=== PATIENT | male | born 1970 | race Caucasian/White ===

== ENCOUNTER 2018-04-16 19:02 | Emergency (ER) | payer OTHER ==
[~2018-04-16] VITALS: Ht 172.7 cm; Wt 117.9 kg
[2018-04-16] MEDS ORDERED: PNEU16DI2 (19:19)
[2018-04-16] MEDS ORDERED: NORVASC5 MG (19:19)
[2018-04-16] MEDS ORDERED: AVAPRO150 MG (19:19)
[2018-04-16] MEDS ORDERED: SIMVASTATIN10 MG (19:20)
== END 2018-04-16 22:20 | disposition home or self-care (01) ==
LOC: ER 19:02
DX: J11.1 Influenza due to unidentified influenza virus with other respiratory manifestations (principal)